=== PATIENT | male | born 1980 | race Caucasian/White ===

== ENCOUNTER 2019-09-02 18:28 | Observation (INO) | payer BC ==
[2019-09-02] MEDS ORDERED: Ondansetron 4 MG/2 ML SDV IVPUSH ONE (19:10)
[2019-09-02] MEDS ORDERED: Sodium Chloride 0.9% 1,000 ML IV ONE (19:10)
--- NOTE | 2019-09-02 19:20 | EDM.PDOC ---
ED HPI GENERAL MEDICAL PROBLEM - General Chief Complaint: Abdominal Pain Stated Complaint: UPPER AND LOWER ABDOMINAL PAIN Time Seen by Provider: 09/02/19 19:03 Source of Information: Reports: Patient History Limitations: Reports: No Limitations - History of Present Illness INITIAL COMMENTS - FREE TEXT/NARRATIVE: Pt with no reported pmh presents with 3-4 days of nausea vomiting and diarrhea. Symptoms have now progressed to RUQ and RLQ abdominal pain and chills. pt has had no surgeries in the abdomen Onset: Gradual Quality: Reports: Sharp right abd Pain Score (Numeric/FACES): 7 - Related Data Allergies Allergy/AdvReac Type Severity Reaction Status Date / Time No Known Allergies Allergy Verified 09/02/19 18:48 Home Meds: Home Meds PARoxetine HCl [Paroxetine HCl] 09/02/19 [History] Past Medical History Other HEENT History: deviated spetum Other Musculoskeletal History: wrist surgery - Infectious Disease History Infectious Disease History: Reports: Chicken Pox - Past Surgical History HEENT Surgical History: Reports: Tonsillectomy Social & Family History - Family History Family Medical History: Noncontributory - Tobacco Use Smoking Status *Q: Never Smoker - Recreational Drug Use Recreational Drug Use: No ED ROS GENERAL - Review of Systems Review Of Systems: See Below Constitutional: Reports: Chills HEENT: Reports: No Symptoms Respiratory: Reports: No Symptoms Cardiovascular: Reports: No Symptoms GI/Abdominal: Reports: Abdominal Pain, Diarrhea, Nausea, Vomiting. Denies: Black Stool, Bloody Stool : Reports: No Symptoms ED EXAM, GI/ABD - Physical Exam Exam: See Below Exam Limited By: No Limitations General Appearance: Alert, WD/WN, No Apparent Distress Throat/Mouth: Normal Voice Head: Atraumatic, Normocephalic Neck: Normal Inspection Respiratory/Chest: No Respiratory Distress, Lungs Clear, Normal Breath Sounds Cardiovascular: Regular Rate, Rhythm, No Murmur GI/Abdominal Exam: Soft, No Organomegaly, No Distention, Tender (RUQ and RLQ, mild) Extremities: Normal Inspection Neurological: Alert, Oriented Skin Exam: Warm, Dry, Intact Course - Vital Signs Last Recorded V/S: Last Vital Signs Temp 96.3 F L 09/02/19 18:49 Pulse 87 09/02/19 21:02 Resp 18 09/02/19 21:02 BP 132/94 H 09/02/19 21:02 Pulse Ox 96 09/02/19 21:02 - Orders/Labs/Meds Orders: Active Orders 24 hr Category Date Time Status Antiembolic Devices [RC] PER UNIT ROUTINE Care 09/02/19 21:36 Active Insert Urinary Catheter [OM.PC] Timed Care 09/02/19 21:36 Ordered Oxygen Therapy [RC] ASDIRECTED Care 09/02/19 21:36 Active RT Incentive Spirometry [RC] Q1HWA Care 09/02/19 21:36 Active Skin Preparation [RC] .PREOP Care 09/02/19 21:36 Active Urinary Catheter Assessment [RC] ASDIRECTED Care 09/02/19 21:36 Active Urinary Catheter Assessment [RC] ASDIRECTED Care 09/02/19 21:36 Active Urinary Catheter Assessment [RC] ASDIRECTED Care 09/02/19 21:36 Active Vital Signs [RC] PER UNIT ROUTINE Care 09/02/19 21:36 Active Nothing Per Oral Diet [DIET] Diet 09/02/19 Dinner Active CULTURE BLOOD [BC] Stat Lab 09/02/19 20:57 Received CULTURE BLOOD [BC] Stat Lab 09/02/19 21:09 Received Lactated Ringers [Ringers, Lactated] 1,000 ml Med 09/02/19 21:45 Active IV ASDIRECTED Lactated Ringers [Ringers, Lactated] 1,000 ml Med 09/02/19 21:45 Active IV STAT Antiembolic Hose [OM.PC] Routine Oth 09/02/19 21:36 Ordered Blood Culture x2 Reflex Set [OM.PC] Stat Oth 09/02/19 20:51 Ordered Resuscitation Status Routine Resus Stat 09/02/19 21:36 Ordered Medication Orders Fentanyl (Sublimaze) 50 mcg IVPUSH Q5M PRN PRN Reason: Pain Lactated Ringer's (Ringers, Lactated) 1,000 mls @ 125 mls/hr IV STAT MEHNAZ Lactated Ringer's (Ringers, Lactated) 1,000 mls @ 125 mls/hr IV ASDIRECTED [facility] Labs: Laboratory Tests 09/02/19 09/02/19 09/02/19 Range/Units 19:18 19:18 20:09 WBC 12.65 H (4.0-11.0) K/uL RBC 5.55 (4.50-5.90) M/uL Hgb 17.9 H (13.0-17.0) g/dL Hct 50.0 (38.0-50.0) % MCV 90.1 (80.0-98.0) fL MCH 32.3 H (27.0-32.0) pg MCHC 35.8 (31.0-37.0) g/dL RDW Std Deviation 42.3 (28.0-62.0) fl RDW Coeff of Sofia 13 (11.0-15.0) % Plt Count 191 (150-400) K/uL MPV 10.10 (7.40-12.00) fL Neut % (Auto) 75.3 (48.0-80.0) % Lymph % (Auto) 13.2 L (16.0-40.0) % Mcdowell % (Auto) 9.2 (0.0-15.0) % Eos % (Auto) 2.2 (0.0-7.0) % Baso % (Auto) 0.1 (0.0-1.5) % Neut # (Auto) 9.5 H (1.4-5.7) K/uL Lymph # (Auto) 1.7 (0.6-2.4) K/uL [place]cdowell # (Auto) 1.2 H (0.0-0.8) K/uL Eos # (Auto) 0.3 (0.0-0.7) K/uL Baso # (Auto) 0.0 (0.0-0.1) K/uL Nucleated RBC % 0.0 /100WBC Nucleated RBCs # 0 K/uL Lactate (0.20-2.00) mmol/L Sodium 141 (136-148) mmol/L Potassium 4.0 (3.5-5.1) mmol/L Chloride 102 (98-107) mmol/L Carbon Dioxide 27.3 (21.0-32.0) mmol/L BUN 14 (7.0-18.0) mg/dL Creatinine 1.3 (0.8-1.3) mg/dL Est Cr Clr Drug Dosing 87.07 mL/min Estimated GFR (MDRD) > 60.0 ml/min Glucose 95 (74-106) mg/dL Calcium 9.3 (8.5-10.1) mg/dL Total Bilirubin 0.7 (0.2-1.0) mg/dL AST 35 (15-37) IU/L ALT 54 (14-63) IU/L Alkaline Phosphatase 66 (46-116) U/L Total Protein 8.2 (6.4-8.2) g/dL Albumin 4.4 (3.4-5.0) g/dL Globulin 3.8 (2.6-4.0) g/dL Albumin/Globulin Ratio 1.2 (0.9-1.6) Lipase 93 (73-393) U/L Urine Color YELLOW Urine Appearance CLEAR Urine pH 7.0 (5.0-8.0) Ur Specific [place] 1.010 (1.001-1.035) Urine Protein NEGATIVE (NEGATIVE) mg/dL Urine Glucose (UA) NEGATIVE (NEGATIVE) mg/dL Urine Ketones 40 H (NEGATIVE) mg/dL Urine Occult Blood NEGATIVE (NEGATIVE) Urine Nitrite NEGATIVE (NEGATIVE) Urine Bilirubin SMALL H (NEGATIVE) Urine Ictotest NEGATIVE Urine Urobilinogen 0.2 (<2.0) EU/dL Ur Leukocyte Esterase NEGATIVE (NEGATIVE) 09/02/19 Range/Units 20:57 WBC (4.0-11.0) K/uL RBC (4.50-5.90) M/uL Hgb (13.0-17.0) g/dL Hct (38.0-50.0) % MCV (80.0-98.0) fL MCH (27.0-32.0) pg MCHC (31.0-37.0) g/dL RDW Std Deviation (28.0-62.0) fl RDW Coeff of Sofia (11.0-15.0) % Plt Count (150-400) K/uL MPV (7.40-12.00) fL Neut % (Auto) (48.0-80.0) % Lymph % (Auto) (16.0-40.0) % Mcdowell % (Auto) (0.0-15.0) % Eos % (Auto) (0.0-7.0) % Baso % (Auto) (0.0-1.5) % Neut # (Auto) (1.4-5.7) K/uL Lymph # (Auto) (0.6-2.4) K/uL Mcdowell # (Auto) (0.0-0.8) K/uL Eos # (Auto) (0.0-0.7) K/uL Baso # (Auto) (0.0-0.1) K/uL Nucleated RBC % /100WBC Nucleated RBCs # K/uL Lactate 0.7 (0.20-2.00) mmol/L Sodium (136-148) mmol/L Potassium (3.5-5.1) mmol/L Chloride (98-107) mmol/L Carbon Dioxide (21.0-32.0) mmol/L BUN (7.0-18.0) mg/dL Creatinine (0.8-1.3) mg/dL Est Cr Clr Drug Dosing mL/min Estimated GFR (MDRD) ml/min Glucose (74-106) mg/dL Calcium (8.5-10.1) mg/dL Total Bilirubin (0.2-1.0) mg/dL AST (15-37) IU/L ALT (14-63) IU/L Alkaline Phosphatase (46-116) U/L Total Protein (6.4-8.2) g/dL Albumin (3.4-5.0) g/dL Globulin (2.6-4.0) g/dL Albumin/Globulin Ratio (0.9-1.6) Lipase (73-393) U/L Urine Color Urine Appearance Urine pH (5.0-8.0) Ur Specific [place] (1.001-1.035) Urine Protein (NEGATIVE) mg/dL Urine Glucose (UA) (NEGATIVE) mg/dL Urine Ketones (NEGATIVE) mg/dL Urine Occult Blood (NEGATIVE) Urine Nitrite (NEGATIVE) Urine Bilirubin (NEGATIVE) Urine Ictotest Urine Urobilinogen (<2.0) EU/dL Ur Leukocyte Esterase (NEGATIVE) Meds: Medications Generic Name Dose Route Start Last Admin Trade Name Freq PRN Reason Stop Dose Admin Fentanyl 50 mcg 09/02/19 22:09 Sublimaze IVPUSH Q5M PRN Pain Lactated Ringer's 1,000 mls @ 125 mls/hr 09/02/19 21:45 Ringers, Lactated IV STAT MEHANZ Lactated Ringer's 1,000 mls @ 125 mls/hr 09/02/19 21:45 Ringers, Lactated IV ASDIRECTED MEHNAZ Discontinued Medications Generic Name Dose Route Start Last Admin Trade Name Noni PRN Reason Stop Dose Admin Bupivacaine HCl Confirm 09/02/19 22:01 Sensorcaine-Mpf 0.5% Administered 09/02/19 22:02 Dose 20 ml .ROUTE .STK-MED ONE Cefazolin Sodium Confirm 09/02/19 22:01 Ancef Administered 09/02/19 22:02 Dose 1 gm .ROUTE .STK-MED ONE Fentanyl Confirm 09/02/19 21:52 Sublimaze Administered 09/02/19 21:53 Dose 250 mcg .ROUTE .STK-MED ONE Sodium Chloride 1,000 mls @ 999 mls/hr 09/02/19 19:10 09/02/19 19:18 Normal Saline IV 09/02/19 20:10 999 mls/hr .Bolus ONE Administration Piperacillin Sod/Tazobactam 100 mls @ 100 mls/hr 09/02/19 21:05 09/02/19 21: 16 Sod 4.5 gm/ Sodium Chloride IV 09/02/19 22:04 100 mls/hr ONETIME ONE Administration Iopamidol 100 ml 09/02/19 20:49 09/02/19 20:49 Isovue Multipack-370 (76%) IVPUSH 09/02/19 20:50 100 ml ONETIME ONE Administration Midazolam HCl Confirm 09/02/19 21:52 Versed 1 Mg/Ml Administered 09/02/19 21:53 Dose 2 mg .ROUTE .STK-MED ONE Ondansetron HCl 4 mg 09/02/19 19:10 09/02/19 19:24 Zofran IVPUSH 09/02/19 19:11 4 mg ONETIME ONE Administration Propofol Confirm 09/02/19 21:52 Diprivan 20 Ml Administered 09/02/19 21:53 Dose 200 mg .ROUTE .STK-MED ONE Sugammadex Sodium Confirm 09/02/19 21:56 Bridion Administered 09/02/19 21:57 Dose 200 mg .ROUTE .STK-MED ONE Departure - Departure Time of Disposition: 22:21 Disposition: Still A Patient 30 Condition: Good Clinical Impression: Appendicitis - Discharge Information *PRESCRIPTION DRUG MONITORING PROGRAM REVIEWED*: Not Applicable *COPY OF PRESCRIPTION DRUG MONITORING REPORT IN PATIENT YUSEF: Not Applicable Sepsis Event Note - Evaluation Sepsis Screening Result: Possible Sepsis Risk - Focused Exam Vital Signs: Vital Signs Temp Pulse Resp BP Pulse Ox 09/02/19 21:02 87 18 132/94 H 96 09/02/19 18:49 96.3 F L 99 16 173/92 H 97 Date Exam was Performed: 09/02/19 Time Exam was Performed: 22:20 - My Orders Last 24 Hours: My Active Orders 09/02/19 20:51 Blood Culture x2 Reflex Set [OM.PC] Stat 09/02/19 20:57 CULTURE BLOOD [BC] Stat 09/02/19 21:09 CULTURE BLOOD [BC] Stat - Assessment/Plan Last 24 Hours: My Active Orders 09/02/19 20:51 Blood Culture x2 Reflex Set [OM.PC] Stat 09/02/19 20:57 CULTURE BLOOD [BC] Stat 09/02/19 21:09 CULTURE BLOOD [BC] Stat
[2019-09-02 19:56] LABS: BLOOD UREA NITROGEN,BUN 14 mg/dL (7.0-18.0); CARBON DIOXIDE,CO2 27.3 mmol/L (21.0-32.0); CHLORIDE,CL 102 mmol/L (98-107); GLUCOSE RANDOM 95 mg/dL (74-106); LIPASE 93 U/L (73-393); SODIUM,NA 141 mmol/L (136-148)
--- NOTE | 2019-09-02 20:46 | CT ---
Indication: Right upper quadrant and right quadrant pain x8 hours Technique: Contrast enhanced axial CT imaging through the abdomen and pelvis. 100 mL Isovue 370 contrast agent was administered intravenously. Sagittal and coronal reconstructions are provided. Comparison: None Findings: There is appendiceal distention, wall thickening, and periappendiceal inflammatory stranding; findings are consistent with acute appendicitis. There is no free extraluminal air to indicate perforation. There is no abdominal or pelvic abscess. A few prominent right mesenteric lymph nodes are presumably reactive. The stomach, small bowel, and colon are unremarkable. There is no significant abnormality of the liver, gallbladder, spleen, pancreas, adrenal glands, and kidneys. A 15 mm cyst is noted in the spleen. The portal vein is patent. There is normal caliber of the abdominal aorta. The visualized osseous structures are unremarkable. The included lung bases are clear. Impression: Acute appendicitis without perforation or abscess. Please note that all CT scans at this facility use dose modulation, iterative reconstruction, and/or weight-based dosing when appropriate to reduce radiation dose to as low as reasonably achievable. Dictated by Vamshi Sanchez MD @ Sep 02 2019 8:37PM Signed by Dr. Vamshi Sanchez @ Sep 02 2019 8:44PM
[2019-09-02] MEDS ORDERED: Iopamidol 755 MG/ML 500 ML Multipack Bottle IVPUSH ONE (20:49)
[2019-09-02] MEDS ORDERED: Piperacillin/Tazobactam 4.5 GM in Sodium Chloride 0.9% 100 ML IV ONE (21:05)
--- NOTE | 2019-09-02 21:43 | PCM.CONS ---
H&P History of Present Illness - General Date of Service: 09/02/19 Admit Problem/Dx: Admission Diagnosis/Problem Admission Diagnosis/Problem Acute abdomen Source of Information: Patient History Limitations: Reports: No Limitations - History of Present Illness Initial Comments - Free Text/Narative: Patient is a 39-year-old gentleman who presented to the emergency room tonight with a 3 day history of abdominal pain, nausea without vomiting and diarrhea. Denies any fever or chills. Today, the pain migrated to the right lower quadrant and was too intense for him to go to work. At that point, he thought he should seek medical attention and presented to the emergency room. He was found have a mild leukocytosis. A CT scan of the abdomen does reveal an acute appendicitis. I have personally reviewed the CT scan. Patient last ate at 0800 hours today. He did have a sip of water while driving to the hospital. Symptom Onset Date: 08/30/19 Duration of Symptoms: Reports: Day(s): Location: Reports: Abdomen Quality: Reports: Pressure, Throbbing Improves with: Reports: Rest Worsens with: Reports: Movement Context: Reports: Sick Contact Associated Symptoms: Reports: Loss of Appetite, Malaise, Nausea/Vomiting (No vomiting). Denies: Confusion, Fever/Chills right abd Pain Score (Numeric/FACES): 7 - Related Data Allergies/Adverse Reactions: Allergies Allergy/AdvReac Type Severity Reaction Status Date / Time No Known Allergies Allergy Verified 09/02/19 18:48 Home Medications: Home Meds PARoxetine HCl [Paroxetine HCl] 09/02/19 [History] Past Medical History Other HEENT History: deviated spetum Other Musculoskeletal History: wrist surgery - Infectious Disease History Infectious Disease History: Reports: Chicken Pox - Past Surgical History HEENT Surgical History: Reports: Tonsillectomy Social & Family History - Family History Family Medical History: Noncontributory - Tobacco Use Smoking Status *Q: Never Smoker - Recreational Drug Use Recreational Drug Use: No H&P Review of Systems - Review of Systems: Review Of Systems: See Below General: Reports: Malaise, Decreased Appetite. Denies: Fever, Chills, Weakness , Fatigue HEENT: Reports: No Symptoms Pulmonary: Denies: Shortness of Breath, Wheezing Cardiovascular: Denies: Chest Pain, Palpitations, Lightheadedness Gastrointestinal: Reports: Abdominal Pain, Anorexia, Diarrhea, Decreased Appetite, Flatus, Nausea. Denies: Black Stool, Constipation, Distension, Hematemesis, Hematochezia, Melena, Vomiting Genitourinary: Denies: Dysuria, Frequency, Burning, Pain, Urgency Musculoskeletal: Reports: No Symptoms Skin: Denies: Cyanosis, Jaundice Psychiatric: Reports: No Symptoms Neurological: Reports: No Symptoms Hematologic/Lymphatic: Reports: No Symptoms Immunologic: Reports: No Symptoms Exam - Exam Exam: See Below - Vital Signs Vital Signs: Last Vital Signs Temp 96.3 F L 09/02/19 18:49 Pulse 87 09/02/19 21:02 Resp 18 09/02/19 21:02 BP 132/94 H 09/02/19 21:02 Pulse Ox 96 09/02/19 21:02 Weight: 215 lb - Exam Quality Assessment: No: Supplemental Oxygen, Central Line/PICC, Urinary Catheter General: Alert, Oriented, Cooperative, Moderate Distress HEENT: Conjunctiva Clear, Nares Patent, Pupils Equal, Pupils Reactive. No: Scleral Icterus Neck: Supple, Trachea Midline Lungs: Clear to Auscultation, Normal Respiratory Effort Cardiovascular: Regular Rate, Regular Rhythm, Normal S1. No: Tachycardia GI/Abdominal Exam: Soft, No Distention, No Mass, Rebound, Tender, Abnormal Bowel Sounds (Hypoactive). No: Guarding, Rigid (Male) Exam: Deferred Rectal (Males) Exam: Deferred Back Exam: Normal Inspection Extremities: Normal Inspection, Normal Range of Motion, Non-Tender, No Pedal Edema Peripheral Pulses: 4+: Posterior Tibial (L), Posterior Tibial (R), Dorsalis Pedis (L), Dorsalis Pedis (R) Skin: Warm, Dry, Intact Neurological: Cranial Nerves Intact, Reflexes Equal Bilateral Psychiatric: Alert, Normal Affect, Normal Mood - Patient Data Lab Results Last 24 hrs: Laboratory Results - last 24 hr 09/02/19 09/02/19 09/02/19 Range/Units 19:18 19:18 20:09 WBC 12.65 H (4.0-11.0) K/uL RBC 5.55 (4.50-5.90) M/uL Hgb 17.9 H (13.0-17.0) g/dL Hct 50.0 (38.0-50.0) % MCV 90.1 (80.0-98.0) fL MCH 32.3 H (27.0-32.0) pg MCHC 35.8 (31.0-37.0) g/dL RDW Std Deviation 42.3 (28.0-62.0) fl RDW Coeff of Sofia 13 (11.0-15.0) % Plt Count 191 (150-400) K/uL MPV 10.10 (7.40-12.00) fL Neut % (Auto) 75.3 (48.0-80.0) % Lymph % (Auto) 13.2 L (16.0-40.0) % Vance % (Auto) 9.2 (0.0-15.0) % Eos % (Auto) 2.2 (0.0-7.0) % Baso % (Auto) 0.1 (0.0-1.5) % Neut # (Auto) 9.5 H (1.4-5.7) K/uL Lymph # (Auto) 1.7 (0.6-2.4) K/uL Vance # (Auto) 1.2 H (0.0-0.8) K/uL Eos # (Auto) 0.3 (0.0-0.7) K/uL Baso # (Auto) 0.0 (0.0-0.1) K/uL Nucleated RBC % 0.0 /100WBC Nucleated RBCs # 0 K/uL Lactate (0.20-2.00) mmol/L Sodium 141 (136-148) mmol/L Potassium 4.0 (3.5-5.1) mmol/L Chloride 102 (98-107) mmol/L Carbon Dioxide 27.3 (21.0-32.0) mmol/L BUN 14 (7.0-18.0) mg/dL Creatinine 1.3 (0.8-1.3) mg/dL Est Cr Clr Drug Dosing 87.07 mL/min Estimated GFR (MDRD) > 60.0 ml/min Glucose 95 (74-106) mg/dL Calcium 9.3 (8.5-10.1) mg/dL Total Bilirubin 0.7 (0.2-1.0) mg/dL AST 35 (15-37) IU/L ALT 54 (14-63) IU/L Alkaline Phosphatase 66 (46-116) U/L Total Protein 8.2 (6.4-8.2) g/dL Albumin 4.4 (3.4-5.0) g/dL Globulin 3.8 (2.6-4.0) g/dL Albumin/Globulin Ratio 1.2 (0.9-1.6) Lipase 93 (73-393) U/L Urine Color YELLOW Urine Appearance CLEAR Urine pH 7.0 (5.0-8.0) Ur Specific [place] 1.010 (1.001-1.035) Urine Protein NEGATIVE (NEGATIVE) mg/dL Urine Glucose (UA) NEGATIVE (NEGATIVE) mg/dL Urine Ketones 40 H (NEGATIVE) mg/dL Urine Occult Blood NEGATIVE (NEGATIVE) Urine Nitrite NEGATIVE (NEGATIVE) Urine Bilirubin SMALL H (NEGATIVE) Urine Ictotest NEGATIVE Urine Urobilinogen 0.2 (<2.0) EU/dL Ur Leukocyte Esterase NEGATIVE (NEGATIVE) 09/02/19 Range/Units 20:57 WBC (4.0-11.0) K/uL RBC (4.50-5.90) M/uL Hgb (13.0-17.0) g/dL Hct (38.0-50.0) % MCV (80.0-98.0) fL MCH (27.0-32.0) pg MCHC (31.0-37.0) g/dL RDW Std Deviation (28.0-62.0) fl RDW Coeff of Sofia (11.0-15.0) % Plt Count (150-400) K/uL MPV (7.40-12.00) fL Neut % (Auto) (48.0-80.0) % Lymph % (Auto) (16.0-40.0) % Vance % (Auto) (0.0-15.0) % Eos % (Auto) (0.0-7.0) % Baso % (Auto) (0.0-1.5) % Neut # (Auto) (1.4-5.7) K/uL Lymph # (Auto) (0.6-2.4) K/uL [place]ance # (Auto) (0.0-0.8) K/uL Eos # (Auto) (0.0-0.7) K/uL Baso # (Auto) (0.0-0.1) K/uL Nucleated RBC % /100WBC Nucleated RBCs # K/uL Lactate 0.7 (0.20-2.00) mmol/L Sodium (136-148) mmol/L Potassium (3.5-5.1) mmol/L Chloride (98-107) mmol/L Carbon Dioxide (21.0-32.0) mmol/L BUN (7.0-18.0) mg/dL Creatinine (0.8-1.3) mg/dL Est Cr Clr Drug Dosing mL/min Estimated GFR (MDRD) ml/min Glucose (74-106) mg/dL Calcium (8.5-10.1) mg/dL Total Bilirubin (0.2-1.0) mg/dL AST (15-37) IU/L ALT (14-63) IU/L Alkaline Phosphatase (46-116) U/L Total Protein (6.4-8.2) g/dL Albumin (3.4-5.0) g/dL Globulin (2.6-4.0) g/dL Albumin/Globulin Ratio (0.9-1.6) Lipase (73-393) U/L Urine Color Urine Appearance Urine pH (5.0-8.0) Ur Specific [place] (1.001-1.035) Urine Protein (NEGATIVE) mg/dL Urine Glucose (UA) (NEGATIVE) mg/dL Urine Ketones (NEGATIVE) mg/dL Urine Occult Blood (NEGATIVE) Urine Nitrite (NEGATIVE) Urine Bilirubin (NEGATIVE) Urine Ictotest Urine Urobilinogen (<2.0) EU/dL Ur Leukocyte Esterase (NEGATIVE) Result Diagrams: 09/02/19 19:18 09/02/19 19:18 Sepsis Event Note - Evaluation Sepsis Screening Result: Possible Sepsis Risk - Focused Exam Vital Signs: Vital Signs Temp Pulse Resp BP Pulse Ox 09/02/19 21:02 87 18 132/94 H 96 09/02/19 18:49 96.3 F L 99 16 173/92 H 97 Date Exam was Performed: 09/02/19 Time Exam was Performed: 21:38 Consult PN Assessment/Plan Procedures: Procedures COMPLETE CBC AUTOMATED (06/03/18) COMPLETE CBC W/AUTO DIFF WBC (06/16/17) PROTHROMBIN TIME (06/03/18) ROUTINE VENIPUNCTURE (06/03/18) THROMBOPLASTIN TIME PARTIAL (06/03/18) (1) Acute abdominal pain in right lower quadrant SNOMED Code(s): 988291860, 357327036 Code(s): R10.31 - RIGHT LOWER QUADRANT PAIN Current Visit: Yes (2) Acute appendicitis SNOMED Code(s): 73062915 Code(s): K35.80 - UNSPECIFIED ACUTE APPENDICITIS Current Visit: Yes Qualifiers: Acute appendicitis type: with localized peritonitis Appendicitis perforation presence: without perforation Problem List Initiated/Reviewed/Updated: Yes My Orders Last 24 Hours: My Active Orders 09/02/19 21:36 Antiembolic Devices [RC] PER UNIT ROUTINE Insert Urinary Catheter [OM.PC] Timed Oxygen Therapy [RC] ASDIRECTED RT Incentive Spirometry [RC] Q1HWA Skin Preparation [RC] .PREOP Urinary Catheter Assessment [RC] ASDIRECTED Urinary Catheter Assessment [RC] ASDIRECTED Urinary Catheter Assessment [RC] ASDIRECTED Vital Signs [RC] PER UNIT ROUTINE Antiembolic Hose [OM.PC] Routine Resuscitation Status Routine 09/02/19 21:37 Admission Status [Patient Status] [ADT] Routine 09/02/19 21:45 Lactated Ringers @ 125 MLS/HR(1000ml) Lactated Ringers [Ringers, Lactated] 1, 000 ml IV ASDIRECTED Lactated Ringers [Ringers, Lactated] 1,000 ml IV STAT 09/02/19 Dinner Nothing Per Oral Diet [DIET] Plan: Laparoscopic appendectomy, possible open appendectomy. Both operative procedures, along with the risks, including, but not limited to, bleeding, infection, pneumonia, deep venous thrombosis, pulmonary emboli, myocardial infarction, and adjacent organ injury have been reviewed with the patient who voices understanding, offers no questions and agrees to proceed.
[2019-09-02] MEDS ORDERED: Lactated Ringers 1,000 ML IV SCH ×2 (21:45)
[2019-09-02] MEDS ORDERED: Propofol 200 MG/20 ML SDV ONE (21:52)
[2019-09-02] MEDS ORDERED: Midazolam 1 MG/ML 2 ML SDV ONE (21:52)
[2019-09-02] MEDS ORDERED: fentaNYL 250 MCG/5 ML SDV ONE ×2 (21:52→23:00)
[2019-09-02] MEDS ORDERED: Sugammadex Sodium 200 MG/2 ML VIAL ONE (21:56)
[2019-09-02] MEDS ORDERED: ceFAZolin 1 GM Vial ONE (22:01)
[2019-09-02] MEDS ORDERED: Bupivacaine 0.5% 10 ML SDV ONE (22:01)
[2019-09-02] MEDS ORDERED: fentaNYL 100 MCG/2 ML SDV IVPUSH PRN (22:09)
--- NOTE | 2019-09-02 22:09 | PCM.PREANE ---
Preanesthetic Assessment - Anesthesia/Transfusion/Family Hx Anesthesia History: Prior Anesthesia Without Reaction Family History of Anesthesia Reaction: No - Review of Systems General: No Symptoms Pulmonary: No Symptoms, Other Cardiovascular: No Symptoms Gastrointestinal: No Symptoms Neurological: No Symptoms Other: Reports: None - Physical Assessment NPO Status Date: 09/02/19 NPO Status Time: 08:00 Vital Signs: Last Vital Signs Temp 35.7 C L 09/02/19 18:49 Pulse 87 09/02/19 21:02 Resp 18 09/02/19 21:02 BP 132/94 H 09/02/19 21:02 Pulse Ox 96 09/02/19 21:02 Height: 1.85 m Weight: 97.522 kg ASA Class: 2E - Lab Values: Laboratory Last Values WBC 12.65 K/uL (4.0-11.0) H 09/02/19 19:18 RBC 5.55 M/uL (4.50-5.90) 09/02/19 19:18 Hgb 17.9 g/dL (13.0-17.0) H 09/02/19 19:18 Hct 50.0 % (38.0-50.0) 09/02/19 19:18 MCV 90.1 fL (80.0-98.0) 09/02/19 19:18 MCH 32.3 pg (27.0-32.0) H 09/02/19 19:18 MCHC 35.8 g/dL (31.0-37.0) 09/02/19 19:18 RDW Std Deviation 42.3 fl (28.0-62.0) 09/02/19 19:18 RDW Coeff of Sofia 13 % (11.0-15.0) 09/02/19 19:18 Plt Count 191 K/uL (150-400) 09/02/19 19:18 MPV 10.10 fL (7.40-12.00) 09/02/19 19:18 Neut % (Auto) 75.3 % (48.0-80.0) 09/02/19 19:18 Lymph % (Auto) 13.2 % (16.0-40.0) L 09/02/19 19:18 [place] % (Auto) 9.2 % (0.0-15.0) 09/02/19 19:18 Eos % (Auto) 2.2 % (0.0-7.0) 09/02/19 19:18 Baso % (Auto) 0.1 % (0.0-1.5) 09/02/19 19:18 Neut # (Auto) 9.5 K/uL (1.4-5.7) H 09/02/19 19:18 Lymph # (Auto) 1.7 K/uL (0.6-2.4) 09/02/19 19:18 [place] # (Auto) 1.2 K/uL (0.0-0.8) H 09/02/19 19:18 Eos # (Auto) 0.3 K/uL (0.0-0.7) 09/02/19 19:18 Baso # (Auto) 0.0 K/uL (0.0-0.1) 09/02/19 19:18 Nucleated RBC % 0.0 /100WBC 09/02/19 19:18 Nucleated RBCs # 0 K/uL 09/02/19 19:18 Lactate 0.7 mmol/L (0.20-2.00) 09/02/19 20:57 Sodium 141 mmol/L (136-148) 09/02/19 19:18 Potassium 4.0 mmol/L (3.5-5.1) 09/02/19 19:18 Chloride 102 mmol/L (98-107) 09/02/19 19:18 Carbon Dioxide 27.3 mmol/L (21.0-32.0) 09/02/19 19:18 BUN 14 mg/dL (7.0-18.0) 09/02/19 19:18 Creatinine 1.3 mg/dL (0.8-1.3) 09/02/19 19:18 Est Cr Clr Drug Dosing 87.07 mL/min 09/02/19 19:18 Estimated GFR (MDRD) > 60.0 ml/min 09/02/19 19:18 Glucose 95 mg/dL (74-106) 09/02/19 19:18 Calcium 9.3 mg/dL (8.5-10.1) 09/02/19 19:18 Total Bilirubin 0.7 mg/dL (0.2-1.0) 09/02/19 19:18 AST 35 IU/L (15-37) 09/02/19 19:18 ALT 54 IU/L (14-63) 09/02/19 19:18 Alkaline Phosphatase 66 U/L (46-116) 09/02/19 19:18 Total Protein 8.2 g/dL (6.4-8.2) 09/02/19 19:18 Albumin 4.4 g/dL (3.4-5.0) 09/02/19 19:18 Globulin 3.8 g/dL (2.6-4.0) 09/02/19 19:18 Albumin/Globulin Ratio 1.2 (0.9-1.6) 09/02/19 19:18 Lipase 93 U/L (73-393) 09/02/19 19:18 Urine Color YELLOW 09/02/19 20:09 Urine Appearance CLEAR 09/02/19 20:09 Urine pH 7.0 (5.0-8.0) 09/02/19 20:09 Ur Specific Center Line 1.010 (1.001-1.035) 09/02/19 20:09 Urine Protein NEGATIVE mg/dL (NEGATIVE) 09/02/19 20:09 Urine Glucose (UA) NEGATIVE mg/dL (NEGATIVE) 09/02/19 20:09 Urine Ketones 40 mg/dL (NEGATIVE) H 09/02/19 20:09 Urine Occult Blood NEGATIVE (NEGATIVE) 09/02/19 20:09 Urine Nitrite NEGATIVE (NEGATIVE) 09/02/19 20:09 Urine Bilirubin SMALL (NEGATIVE) H 09/02/19 20:09 Urine Ictotest NEGATIVE 09/02/19 20:09 Urine Urobilinogen 0.2 EU/dL (<2.0) 09/02/19 20:09 Ur Leukocyte Esterase NEGATIVE (NEGATIVE) 09/02/19 20:09 - Allergies Allergies/Adverse Reactions: Allergies Allergy/AdvReac Type Severity Reaction Status Date / Time No Known Allergies Allergy Verified 09/02/19 18:48 - Acknowledgements Anesthesia Type Planned: General Anesthesia Pt an Appropriate Candidate for the Planned Anesthesia: Yes Alternatives and Risks of Anesthesia Discussed w Pt/Guardian: Yes Pt/Guardian Understands and Agrees with Anesthesia Plan: Yes Additional Comments: Anes Note Patient has a history of sleep apnea. He does not have his CPAP mask with him. Plan overnight oximetry and capnography. Cristopher Otilio [employer] PreAnesthesia Questionnaire Other HEENT History: deviated spetum Other Musculoskeletal History: wrist surgery - Infectious Disease History Infectious Disease History: Reports: Chicken Pox - Past Surgical History HEENT Surgical History: Reports: Tonsillectomy - SUBSTANCE USE Smoking Status *Q: Never Smoker Recreational Drug Use History: No - HOME MEDS Home Medications: Home Meds PARoxetine HCl [Paroxetine HCl] 09/02/19 [History] - CURRENT (IN HOUSE) MEDS Current Meds: Current Medications Lactated Ringer's (Ringers, Lactated) 1,000 mls @ 125 mls/hr IV STAT MEHNAZ Lactated Ringer's (Ringers, Lactated) 1,000 mls @ 125 mls/hr IV ASDIRECTED MEHNAZ Discontinued Medications Bupivacaine HCl (Sensorcaine-Mpf 0.5%) Confirm Administered Dose 20 ml .ROUTE .STK-MED ONE Stop: 09/02/19 22:02 Cefazolin Sodium (Ancef) Confirm Administered Dose 1 gm .ROUTE .STK-MED ONE Stop: 09/02/19 22:02 Fentanyl (Sublimaze) Confirm Administered Dose 250 mcg .ROUTE .STK-MED ONE Stop: 09/02/19 21:53 Sodium Chloride (Normal Saline) 1,000 mls @ 999 mls/hr IV .Bolus ONE Stop: 09/02/19 20:10 Last Admin: 09/02/19 19:18 Dose: 999 mls/hr Piperacillin Sod/Tazobactam (Sod 4.5 gm/ Sodium Chloride) 100 mls @ 100 mls/hr IV ONETIME ONE Stop: 09/02/19 22:04 Last Admin: 09/02/19 21:16 Dose: 100 mls/hr Iopamidol (Isovue Multipack-370 (76%)) 100 ml IVPUSH ONETIME ONE Stop: 09/02/19 20:50 Last Admin: 09/02/19 20:49 Dose: 100 ml Midazolam HCl (Versed 1 Mg/Ml) Confirm Administered Dose 2 mg .ROUTE .STK-MED ONE Stop: 09/02/19 21:53 Ondansetron HCl (Zofran) 4 mg IVPUSH ONETIME ONE Stop: 09/02/19 19:11 Last Admin: 09/02/19 19:24 Dose: 4 mg Propofol (Diprivan 20 Ml) Confirm Administered Dose 200 mg .ROUTE .STK-MED ONE Stop: 09/02/19 21:53 Sugammadex Sodium (Bridion) Confirm Administered Dose 200 mg .ROUTE .STK-MED ONE Stop: 09/02/19 21:57
[2019-09-02] MEDS ORDERED: Succinylcholine 200 MG/10 ML MDV ONE (22:59)
[2019-09-02] MEDS ORDERED: Ondansetron 4 MG/2 ML SDV ONE (22:59)
[2019-09-02] MEDS ORDERED: Glycopyrrolate 0.2 MG/ML SDV ONE (22:59)
[2019-09-02] MEDS ORDERED: Lidocaine 2% 5 ML SDV ONE (22:59)
[2019-09-02] MEDS ORDERED: Ketorolac 30 MG/ML SDV ONE (22:59)
[2019-09-02] MEDS ORDERED: Rocuronium 100 MG/10 ML Syringe ONE (22:59)
[2019-09-03] MEDS ORDERED: Morphine 10 MG/ML Syringe IVPUSH PRN (00:08)
--- NOTE | 2019-09-03 00:14 | PCM.OPNOTE ---
- General Post-Op/Procedure Note Date of Surgery/Procedure: 09/02/19 Operative Procedure(s): Laparoscopic appendectomy Pre Op Diagnosis: Acute abdomen with right lower quadrant pain Post-Op Diagnosis: Acute nonruptured appendicitis with localized peritonitis Anesthesia Technique: General ET Tube Primary Surgeon: Ernesto Christian Fluid Replacement, Intraop: 1,400 Output, Urine Amount: 400 EBL in mLs: 20 Condition: Stable Free Text/Narrative:: DICTATION [id number] CPT CODE 67123
[2019-09-03] MEDS ORDERED: cefOXitin 1 GM in Premix Bag 1 BAG IV ONE (00:30)
--- NOTE | 2019-09-03 00:34 | PCM.POSTAN ---
POST ANESTHESIA ASSESSMENT - MENTAL STATUS Mental Status: Alert - VITAL SIGNS Vital Signs: Last Vital Signs Temp 36.5 C 09/03/19 00:07 Pulse 70 09/03/19 00:27 Resp 15 09/03/19 00:27 BP 132/72 09/03/19 00:27 Pulse Ox 98 09/03/19 00:27 - RESPIRATORY Respiratory Status: Respiratory Rate WNL - CARDIOVASCULAR CV Status: Pulse Rate WNL - GASTROINTESTINAL GI Status: No Symptoms - POST OP HYDRATION Hydration Status: Adequate & Stable
--- NOTE | 2019-09-03 01:44 | OR ---
SURGEON: Ernesto Christian M.D. DATE OF PROCEDURE: 09/02/2019 OPERATION PERFORMED: Laparoscopic appendectomy. PRIMARY SURGEON: Ernesto Christian M.D. ANESTHESIA: General endotracheal. ASA CLASSIFICATION: IIE. PREOPERATIVE DIAGNOSES: Acute abdomen, right lower quadrant pain, appendicitis by CT scan. POSTOPERATIVE DIAGNOSIS: Acute nonruptured appendicitis with localized peritonitis. ESTIMATED BLOOD LOSS: 20 mL. INTRAOPERATIVE FLUID REPLACEMENT: 1400 mL of crystalloid. INTRAOPERATIVE URINE OUTPUT: 400 mL. DESCRIPTION OF PROCEDURE: The patient was taken to the operating room and placed on the operating table in the supine position. Time-out was called for appropriate identification of the patient and procedure. Sequential compression boots were placed. Following satisfactory attainment of general endotracheal anesthesia, a Guerrero catheter was placed in the patient's urinary bladder. The abdomen was prepped with DuraPrep solution, and sterile drapes were applied. The skin above the umbilicus was infiltrated with 0.5% Marcaine solution. Skin incision was made and deepened through the subcutaneous tissue obtaining hemostasis with the use of electrocautery. The Veress needle was introduced into the peritoneal cavity. Saline drop test was positive. Carbon dioxide pneumoperitoneum was established with the release set at 13 cm of water. Once a satisfactory pneumoperitoneum was established, 5 mm camera and port were placed through the supraumbilical incision. The patient was now positioned with his head down and rolled to the left. Under camera vision, 12 mm suprapubic and 5 mm left lower quadrant ports were placed. Each incision was preemptively infiltrated with 0.5% Marcaine solution. With all trocars in place, the appendix was able to be grasped. It was stuck in the right lower quadrant, and using gentle blunt dissection, I was able to mobilize this. The mesoappendix was taken down with the Harmonic scalpel. Bleeding sites were coagulated using the Harmonic scalpel. The appendix was then transected using the Endo-DAKOTA stapler with a blue load. The appendix was properly placed in an EndoCatch and then maintained in situ. The right lower quadrant was irrigated with 1 L of 1% Ancef solution. All fluid was aspirated. The EndoCatch containing appendix and 12 mm port were removed from the supraumbilical incision under camera vision. Again, under camera vision, the left lower quadrant port was removed and finally the supraumbilical camera and port were removed. Wounds were inspected for hemostasis and all bleeding sites were electrocoagulated. The midline fascia in the suprapubic incision was closed with interrupted 0 Vicryl. The suprapubic and supraumbilical incisions were closed in 2 layers approximating the subcutaneous tissue with 3-0 Vicryl and the skin with subcuticular 4-0 Monocryl. The left lower quadrant port was closed with subcuticular 4-0 Monocryl. All incisions were steri-stripped and dressed with sterile Tegaderm pads. Sponge, needle, and instrument counts were all correct. Prior to emergence from anesthesia, the Guerrero catheter was removed. Following emergence from anesthesia and extubation, the patient was taken to recovery room in stable condition. JUANITA MELÉNDEZ /[id number]
[2019-09-03] MEDS: Lactated Ringers 1,000 ML IV SCH ×2 (01:57→10:13)
[2019-09-03] MEDS: Acetaminophen/HYDROcodone 325-5 MG Tab PO PRN ×2 (06:22→12:54)
[2019-09-03] MEDS ORDERED: cefOXitin 1 GM in Premix Bag 1 BAG IV SCH (08:00)
--- NOTE | 2019-09-03 09:04 | PCM48HPAN ---
Post Anesthesia Note - EVALUATION WITHIN 48HRS OF ANESTHETIC Vital Signs in Normal Range: Yes Patient Participated in Evaluation: Yes Respiratory Function Stable: Yes Airway Patent: Yes Cardiovascular Function Stable: Yes Hydration Status Stable: Yes Pain Control Satisfactory: Yes Nausea and Vomiting Control Satisfactory: Yes Mental Status Recovered: Yes Vital Signs: Last Vital Signs Temp 36.2 C 09/03/19 07:20 Pulse 67 09/03/19 08:00 Resp 16 09/03/19 08:00 BP 120/58 L 09/03/19 08:00 Pulse Ox 97 09/03/19 08:00
--- NOTE | 2019-09-03 10:47 | PCM.DCSUM1 ---
Discharge Summary - Hospital Course Free Text/Narrative:: Patient is a 39-year-old gentleman who presented to the emergency room with a three-day history of nausea and vomiting and a one-day history of right lower quadrant progressive pain. Workup in the emergency room included appropriate laboratory and radiologic studies. CT scan of the abdomen did confirm an acute appendicitis without rupture. This was consistent with his story and physical examination. He was taken to the operating room after surgical consultation, where under general endotracheal anesthesia, laparoscopic appendectomy was performed. He has convalesced well during the night. He denies any significant pain. His pain is well-controlled with oral analgesics. He has been afebrile and nontoxic card. He was maintained on capnography given his history of sleep apnea. He does have a CPAP machine at home which he will resume using. HPI Initial Comments: See surgical consultation. - Discharge Data Discharge Date: 09/03/19 Discharge Disposition: Home, Self-Care 01 Condition: Stable - Referral to Home Health Primary Care Physician: PCP Not In Area - Discharge Diagnosis/Problem(s) (1) Acute abdominal pain in right lower quadrant SNOMED Code(s): 161701685, 250051046 ICD Code: R10.31 - RIGHT LOWER QUADRANT PAIN Status: Acute Current Visit : Yes (2) Acute appendicitis SNOMED Code(s): 01349332 ICD Code: K35.80 - UNSPECIFIED ACUTE APPENDICITIS Status: Acute Current Visit: Yes Qualifiers: Acute appendicitis type: with localized peritonitis Appendicitis gangrene presence: without gangrene Appendicitis perforation presence: without perforation Appendicitis abscess presence: without abscess Qualified Code(s) : K35.30 - Acute appendicitis with localized peritonitis, without perforation or gangrene - Patient Summary/Data Operative Procedure(s) Performed: Laparoscopic appendectomy - Patient Instructions Diet: Usual Diet as Tolerated Activity: No Lifting Over 25 Pounds (For 6 weeks) Activity, Other: May return to light duty on September 07 Driving: Do Not Drive (For at least 24 hours) Showering/Bathing: May Shower Wound/Incision Care: Keep Operative Site/Wound Site Clean and Dry Notify Provider of: Fever, Increased Pain, Swelling and Redness, Drainage, Nausea and/or Vomiting Other/Special Instructions: See Dr. Christian in 7-10 days as scheduled. Please call my office Thursday to make the appointment. - Discharge Plan *PRESCRIPTION DRUG MONITORING PROGRAM REVIEWED*: Not Applicable *COPY OF PRESCRIPTION DRUG MONITORING REPORT IN PATIENT YUSEF: Not Applicable Prescriptions/Med Rec: Acetaminophen/HYDROcodone [[place]orton 325-5 MG] 1 tab PO Q12H PRN 5 Days #10 tablet PRN Reason: Pain (Moderate 4-6) Home Medications: Home Meds PARoxetine HCl [Paroxetine HCl] 09/02/19 [History] Acetaminophen/HYDROcodone [[place] 325-5 MG] 1 tab PO Q12H PRN 5 Days #10 tablet 09/03/19 [Rx] Patient Handouts: Appendicitis, Adult, Laparoscopic Appendectomy, Adult, Care After Forms: ED Department Discharge Referrals: PCP,Not In Area [Primary Care Provider] - Ernesto Christian MD [Physician] - - Discharge Summary/Plan Comment DC Time >30 min.: No - General Info Date of Service: 09/03/19 Admission Dx/Problem (Free Text: Admission Diagnosis/Problem Admission Diagnosis/Problem Acute abdomen Functional Status: Reports: Pain Controlled, Tolerating Diet, Ambulating, Urinating, Incentive Spirometry. Denies: New Symptoms - Review of Systems General: Denies: Fever, Weakness, Fatigue, Malaise, Chills HEENT: Reports: No Symptoms Pulmonary: Denies: Shortness of Breath, Pleuritic Chest Pain, Cough Cardiovascular: Denies: Chest Pain Gastrointestinal: Denies: Abdominal Pain, Constipation, Decreased Appetite, Diarrhea, Difficulty Swallowing, Nausea, Vomiting Genitourinary: Denies: Dysuria, Frequency, Burning, Pain, Urgency Musculoskeletal: Reports: No Symptoms Skin: Reports: No Symptoms Neurological: Reports: No Symptoms Psychiatric: Reports: No Symptoms - Patient Data Vitals - Most Recent: Last Vital Signs Temp 97.1 F 09/03/19 07:20 Pulse 67 09/03/19 08:00 Resp 16 09/03/19 08:00 BP 120/58 L 09/03/19 08:00 Pulse Ox 97 09/03/19 08:00 Weight - Most Recent: 215 lb I&O - Last 24 hours: Intake & Output 09/02/19 09/03/19 09/03/19 19:59 03:59 11:59 Intake Total 1400 600 Output Total 800 Balance 600 600 Lab Results - Last 24 hrs: Laboratory Results - last 24 hr 09/02/19 09/02/19 09/02/19 Range/Units 19:18 19:18 20:09 WBC 12.65 H (4.0-11.0) K/uL RBC 5.55 (4.50-5.90) M/uL Hgb 17.9 H (13.0-17.0) g/dL Hct 50.0 (38.0-50.0) % MCV 90.1 (80.0-98.0) fL MCH 32.3 H (27.0-32.0) pg MCHC 35.8 (31.0-37.0) g/dL RDW Std Deviation 42.3 (28.0-62.0) fl RDW Coeff of Sofia 13 (11.0-15.0) % Plt Count 191 (150-400) K/uL MPV 10.10 (7.40-12.00) fL Neut % (Auto) 75.3 (48.0-80.0) % Lymph % (Auto) 13.2 L (16.0-40.0) % [place] % (Auto) 9.2 (0.0-15.0) % Eos % (Auto) 2.2 (0.0-7.0) % Baso % (Auto) 0.1 (0.0-1.5) % Neut # (Auto) 9.5 H (1.4-5.7) K/uL Lymph # (Auto) 1.7 (0.6-2.4) K/uL [place] # (Auto) 1.2 H (0.0-0.8) K/uL Eos # (Auto) 0.3 (0.0-0.7) K/uL Baso # (Auto) 0.0 (0.0-0.1) K/uL Nucleated RBC % 0.0 /100WBC Nucleated RBCs # 0 K/uL Lactate (0.20-2.00) mmol/L Sodium 141 (136-148) mmol/L Potassium 4.0 (3.5-5.1) mmol/L Chloride 102 (98-107) mmol/L Carbon Dioxide 27.3 (21.0-32.0) mmol/L BUN 14 (7.0-18.0) mg/dL Creatinine 1.3 (0.8-1.3) mg/dL Est Cr Clr Drug Dosing 87.07 mL/min Estimated GFR (MDRD) > 60.0 ml/min Glucose 95 (74-106) mg/dL Calcium 9.3 (8.5-10.1) mg/dL Total Bilirubin 0.7 (0.2-1.0) mg/dL AST 35 (15-37) IU/L ALT 54 (14-63) IU/L Alkaline Phosphatase 66 (46-116) U/L Total Protein 8.2 (6.4-8.2) g/dL Albumin 4.4 (3.4-5.0) g/dL Globulin 3.8 (2.6-4.0) g/dL Albumin/Globulin Ratio 1.2 (0.9-1.6) Lipase 93 (73-393) U/L Urine Color YELLOW Urine Appearance CLEAR Urine pH 7.0 (5.0-8.0) Ur Specific Rule 1.010 (1.001-1.035) Urine Protein NEGATIVE (NEGATIVE) mg/dL Urine Glucose (UA) NEGATIVE (NEGATIVE) mg/dL Urine Ketones 40 H (NEGATIVE) mg/dL Urine Occult Blood NEGATIVE (NEGATIVE) Urine Nitrite NEGATIVE (NEGATIVE) Urine Bilirubin SMALL H (NEGATIVE) Urine Ictotest NEGATIVE Urine Urobilinogen 0.2 (<2.0) EU/dL Ur Leukocyte Esterase NEGATIVE (NEGATIVE) 09/02/19 Range/Units 20:57 WBC (4.0-11.0) K/uL RBC (4.50-5.90) M/uL Hgb (13.0-17.0) g/dL Hct (38.0-50.0) % MCV (80.0-98.0) fL MCH (27.0-32.0) pg MCHC (31.0-37.0) g/dL RDW Std Deviation (28.0-62.0) fl RDW Coeff of Sofia (11.0-15.0) % Plt Count (150-400) K/uL MPV (7.40-12.00) fL Neut % (Auto) (48.0-80.0) % Lymph % (Auto) (16.0-40.0) % [place] % (Auto) (0.0-15.0) % Eos % (Auto) (0.0-7.0) % Baso % (Auto) (0.0-1.5) % Neut # (Auto) (1.4-5.7) K/uL Lymph # (Auto) (0.6-2.4) K/uL [place] # (Auto) (0.0-0.8) K/uL Eos # (Auto) (0.0-0.7) K/uL Baso # (Auto) (0.0-0.1) K/uL Nucleated RBC % /100WBC Nucleated RBCs # K/uL Lactate 0.7 (0.20-2.00) mmol/L Sodium (136-148) mmol/L Potassium (3.5-5.1) mmol/L Chloride (98-107) mmol/L Carbon Dioxide (21.0-32.0) mmol/L BUN (7.0-18.0) mg/dL Creatinine (0.8-1.3) mg/dL Est Cr Clr Drug Dosing mL/min Estimated GFR (MDRD) ml/min Glucose (74-106) mg/dL Calcium (8.5-10.1) mg/dL Total Bilirubin (0.2-1.0) mg/dL AST (15-37) IU/L ALT (14-63) IU/L Alkaline Phosphatase (46-116) U/L Total Protein (6.4-8.2) g/dL Albumin (3.4-5.0) g/dL Globulin (2.6-4.0) g/dL Albumin/Globulin Ratio (0.9-1.6) Lipase (73-393) U/L Urine Color Urine Appearance Urine pH (5.0-8.0) Ur Specific Rule (1.001-1.035) Urine Protein (NEGATIVE) mg/dL Urine Glucose (UA) (NEGATIVE) mg/dL Urine Ketones (NEGATIVE) mg/dL Urine Occult Blood (NEGATIVE) Urine Nitrite (NEGATIVE) Urine Bilirubin (NEGATIVE) Urine Ictotest Urine Urobilinogen (<2.0) EU/dL Ur Leukocyte Esterase (NEGATIVE) Med Orders - Current: Current Medications Hydrocodone Bitart/Acetaminophen ([place] 325-5 Mg) 1 tab PO Q6H PRN PRN Reason: Pain (moderate 4-6) Last Admin: 09/03/19 06:22 Dose: 1 tab Lactated Ringer's (Ringers, Lactated) 1,000 mls @ 125 mls/hr IV ASDIRECTED [facility] Last Admin: 09/03/19 10:13 Dose: 125 mls/hr Cefoxitin Sodium 1 gm/ Premix 50 mls @ 100 mls/hr IV Q8H [facility] Last Admin: 09/03/19 08:24 Dose: 100 mls/hr Morphine Sulfate (Morphine) 1 - 5 mg IVPUSH Q1H PRN PRN Reason: Pain (severe 7-10) Discontinued Medications Bupivacaine HCl (Sensorcaine-Mpf 0.5%) Confirm Administered Dose 20 ml .ROUTE .STK-MED ONE Stop: 09/02/19 22:02 Cefazolin Sodium (Ancef) Confirm Administered Dose 1 gm .ROUTE .STK-MED ONE Stop: 09/02/19 22:02 Fentanyl (Sublimaze) Confirm Administered Dose 250 mcg .ROUTE .STK-MED ONE Stop: 09/02/19 21:53 Fentanyl (Sublimaze) 50 mcg IVPUSH Q5M PRN PRN Reason: Pain Fentanyl (Sublimaze) Confirm Administered Dose 250 mcg .ROUTE .STK-MED ONE Stop: 09/02/19 23:01 Glycopyrrolate (Robinul) Confirm Administered Dose 0.2 mg .ROUTE .STK-MED ONE Stop: 09/02/19 23:00 Sodium Chloride (Normal Saline) 1,000 mls @ 999 mls/hr IV .Bolus ONE Stop: 09/02/19 20:10 Last Admin: 09/02/19 19:18 Dose: 999 mls/hr Piperacillin Sod/Tazobactam (Sod 4.5 gm/ Sodium Chloride) 100 mls @ 100 mls/hr IV ONETIME ONE Stop: 09/02/19 22:04 Last Admin: 09/02/19 21:16 Dose: 100 mls/hr Lactated Ringer's (Ringers, Lactated) 1,000 mls @ 125 mls/hr IV STAT [facility] Last Admin: 09/02/19 21:45 Dose: 125 mls/hr Lactated Ringer's (Ringers, Lactated) 1,000 mls @ 125 mls/hr IV ASDIRECTED [facility] Cefoxitin Sodium 1 gm/ Premix 50 mls @ 100 mls/hr IV ONETIME ONE Stop: 09/03/19 00:59 Last Admin: 09/03/19 04:02 Dose: Not Given Iopamidol (Isovue Multipack-370 (76%)) 100 ml IVPUSH ONETIME ONE Stop: 09/02/19 20:50 Last Admin: 09/02/19 20:49 Dose: 100 ml Ketorolac Tromethamine (Toradol) Confirm Administered Dose 30 mg .ROUTE .STK- MED ONE Stop: 09/02/19 23:00 Lidocaine (Xylocaine-Mpf 2%) Confirm Administered Dose 5 ml .ROUTE .STK-MED ONE Stop: 09/02/19 23:00 Midazolam HCl (Versed 1 Mg/Ml) Confirm Administered Dose 2 mg .ROUTE .STK-MED ONE Stop: 09/02/19 21:53 Ondansetron HCl (Zofran) 4 mg IVPUSH ONETIME ONE Stop: 09/02/19 19:11 Last Admin: 09/02/19 19:24 Dose: 4 mg Ondansetron HCl (Zofran) Confirm Administered Dose 4 mg .ROUTE .STK-MED ONE Stop: 09/02/19 23:00 Propofol (Diprivan 20 Ml) Confirm Administered Dose 200 mg .ROUTE .STK-MED ONE Stop: 09/02/19 21:53 Rocuronium [place] (Zemuron) Confirm Administered Dose 100 mg .ROUTE .STK-MED ONE Stop: 09/02/19 23:00 Succinylcholine Chloride (Quelicin) Confirm Administered Dose 200 mg .ROUTE .STK -MED ONE Stop: 09/02/19 23:00 Sugammadex Sodium (Bridion) Confirm Administered Dose 200 mg .ROUTE .STK-MED ONE Stop: 09/02/19 21:57 - Exam Quality Assessment: Reports: Supplemental Oxygen (Capnography). Denies: Central Line/PICC, Urine Catheter General: Reports: Alert, Oriented, Cooperative, No Acute Distress HEENT: Reports: Pupils Equal, Pupils Reactive. Denies: Scleral Icterus Neck: Reports: Supple, Trachea Midline Lungs: Reports: Clear to Auscultation, Normal Respiratory Effort Cardiovascular: Reports: Regular Rate, Regular Rhythm. Denies: Tachycardia GI/Abdominal Exam: Normal Bowel Sounds, Soft, Non-Tender, No Organomegaly, No Distention. No: Guarding, Rigid, Rebound (Male) Exam: Deferred Rectal (Males) Exam: Deferred Back Exam: Reports: Normal Inspection Extremities: Normal Inspection, Normal Range of Motion, Non-Tender, No Pedal Edema. No: Geeta's Sign Skin: Reports: Warm, Dry, Intact Wound/Incisions: Reports: Dressing Dry and Intact, No Drainage Neurological: Reports: No New Focal Deficit Psy/Mental Status: Reports: Alert, Normal Affect, Normal Mood Discharge Operative/Procedures - Procedures Performed Operations/Procedure Comment: Laparoscopic appendectomy
== END 2019-09-03 13:20 | disposition home or self-care (01) ==
LOC: MW.ED 18:28 → MW.MS 21:37
PROVIDERS: ADMIT Surgery; ATTEND Surgery
DX: K35.30 Acute appendicitis with localized peritonitis, without perforation or gangrene (principal); G47.30 Sleep apnea, unspecified; Z99.89 Dependence on other enabling machines and devices
CPT/HCPCS: 36415; 44970; 74177; 80053; 81003; 83605; 83690; 85025; 87040; 88304; 96361; 96365; 96367; 96375; 99285; A9270; G0378; J0330; J0690; J0694; J1885; J2001; J2250; J2405; J2543; J2704; J3010; J3490; J7030; J7050; J7120; Q9967; 00840; 99283